=== PATIENT | female | born 1985 | race Caucasian/White ===

== ENCOUNTER 2017-09-13 11:19 | Emergency (ER) | payer OTHER ==
[2017-09-13 11:24] VITALS: BP 130/80
--- NOTE | 2017-09-13 11:41 | ER Document Report ---
ED General - General Chief Complaint: Headache Stated Complaint: HEADACHE Time Seen by Provider: 09/13/17 11:39 Mode of Arrival: Ambulatory Information source: Patient Notes: Patient states she woke up this morning has bilateral headache with some vision changes. She states she no longer has the vision changes. She states she still does have the headache. She states she also has some dizziness earlier that is now gone. Currently the headache is bilateral and moderate in intensity. It is a throbbing sensation. It does not radiate. Nothing makes it better or worse. She states she has been under stress lately. She states she has no significant past medical history or surgeries. No cough cold congestion or fevers. No known trauma. No history of migraines. TRAVEL OUTSIDE OF THE [place] IN LAST 30 DAYS: No - Related Data Allergies/Adverse Reactions: No Known Allergies Allergy (Verified 09/13/17 11:20) Past Medical History - General Information source: Patient - Social History Smoking Status: Never Smoker Chew tobacco use (# tins/day): No Frequency of alcohol use: Occasional Drug Abuse: None Family History: Reviewed & Not Pertinent Patient has suicidal ideation: No Patient has homicidal ideation: No - Past Medical History Cardiac Medical History: Denies: Hx Coronary Artery Disease, Hx Heart Attack, Hx Hypertension Pulmonary Medical History: Denies: Hx Asthma, Hx Bronchitis, Hx COPD, Hx Pneumonia Neurological Medical History: Denies: Hx Cerebrovascular Accident, Hx Seizures Renal/ Medical History: Denies: Hx Peritoneal Dialysis Musculoskeltal Medical History: Denies Hx Arthritis - Immunizations Hx Diphtheria, Pertussis, Tetanus Vaccination: Yes Review of Systems - Review of Systems Constitutional: denies: Chills, Fever EENT: Blurred vision. denies: Nose congestion, Nose discharge Cardiovascular: denies: Chest pain, Palpitations Physical Exam - Vital signs Vitals: Temp Pulse Resp BP Pulse Ox 98.6 F 73 15 130/80 H 100 09/13/17 11:23 09/13/17 11:23 09/13/17 11:23 09/13/17 11:23 09/13/17 11:23 Interpretation: Normal - General General appearance: Appears well, Alert - HEENT Head: Normocephalic, Atraumatic Eyes: Normal Pupils: PERRL - Respiratory Respiratory status: No respiratory distress Chest status: Nontender Breath sounds: Normal Chest palpation: Normal - Cardiovascular Rhythm: Regular Heart sounds: Normal auscultation Murmur: No - Abdominal Inspection: Normal Distension: No distension Bowel sounds: Normal Tenderness: Nontender Organomegaly: No organomegaly - Back Back: Normal, Nontender - Extremities General upper extremity: Normal inspection, Nontender, Normal color, Normal ROM , Normal temperature General lower extremity: Normal inspection, Nontender, Normal color, Normal ROM , Normal temperature, Normal weight bearing. No: Cheryl's sign - Neurological Neuro grossly intact: Yes Cognition: Normal Orientation: AAOx4 [place] Coma Scale Eye Opening: Spontaneous [place] Coma Scale Verbal: Oriented [place] Coma Scale Motor: Obeys Commands [place] Coma Scale Total: 15 Speech: Normal Cranial nerves: Normal Cerebellar coordination: Normal Motor strength normal: LUE, RUE, LLE, RLE Additional motor exam normals: Equal nuclear physician. No: Pronator drift Sensory: Normal - Psychological Associated symptoms: Normal affect, Normal mood - Skin Skin Temperature: Warm Skin Moisture: Dry Skin Color: Normal Course - Vital Signs Vital signs: Temp Pulse Resp BP Pulse Ox 98.6 F 73 15 130/80 H 100 09/13/17 11:23 09/13/17 11:23 09/13/17 11:23 09/13/17 11:23 09/13/17 11:23 Discharge - Discharge Clinical Impression: Tension headache Condition: Stable Disposition: HOME, SELF-CARE Prescriptions: Butalb/Acetaminophen/Caffeine [Fioricet (50-325-40 mg) Tablet] 1 tab PO Q4HP PRN #30 tab PRN Reason: Forms: Return to Work
== END 2017-09-13 11:45 | disposition home or self-care (01) ==
LOC: ER 11:19
DX: G44.209 Tension-type headache, unspecified, not intractable (principal); H53.8 Other visual disturbances
CPT/HCPCS: 99283

== ENCOUNTER 2018-10-08 08:29 | Emergency (ER) | payer MEDICAID, OTHER ==
[2018-10-08 08:36] VITALS: BP 115/66
[2018-10-08] MEDS ORDERED: LIDOCAINE 5% (700 MG) TRANSDERMAL ADH..PATCH TP ONE (09:20)
[2018-10-08] MEDS ORDERED: ACETAMINOPHEN 325 MG TABLET PO ONE (09:20)
--- NOTE | 2018-10-08 09:21 | ER Document Report ---
HPI - HPI Patient complains to provider of: Right hip and leg pain Time Seen by Provider: 10/08/18 09:10 Onset: Yesterday Onset/Duration: Gradual Quality of pain: Achy, Sharp Pain Level: 3 Context: Patient complains of right posterior hip and thigh pain that started yesterday. Patient does do heavy lifting at her job and is currently 16 weeks . Patient denies any fever or urinary symptoms. Patient denies any paresthesia. Associated Symptoms: Other - Right hip and leg pain Exacerbated by: Standing, Movement, Walking Relieved by: Denies Similar symptoms previously: No Recently seen / treated by doctor: No - ROS ROS below otherwise negative: Yes Systems Reviewed and Negative: Yes All other systems reviewed and negative - CONSTITUTIONAL Constitutional: DENIES: Fever, Chills - NEURO Neurology: DENIES: Weakness - REPRODUCTIVE Reproductive: DENIES: : - MUSCULOSKELETAL Musculoskeletal: REPORTS: Extremity pain. 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 Lives with: Family Family History: Reviewed & Not Pertinent - Medical History Medical History: Negative Pulmonary Medical History: Denies: Hx Asthma, Hx Bronchitis, Hx COPD, Hx Pneumonia Neurological Medical History: Denies: Hx Cerebrovascular Accident, Hx Seizures Renal/ Medical History: Denies: Hx Peritoneal Dialysis Musculoskeletal Medical History: Denies Hx Arthritis Surgical Hx: Negative - Immunizations Hx Diphtheria, Pertussis, Tetanus Vaccination: Yes Vertical Provider Document - CONSTITUTIONAL Agree With Documented VS: Yes Exam Limitations: No Limitations General Appearance: WD/WN, No Apparent Distress - INFECTION CONTROL TRAVEL OUTSIDE OF THE [place] IN LAST 30 DAYS: No - HEENT HEENT: Atraumatic, Normocephalic - NECK Neck: Normal Inspection, Supple - RESPIRATORY Respiratory: Breath Sounds Normal, No Respiratory Distress - CARDIOVASCULAR Cardiovascular: Regular Rate, Regular Rhythm - BACK Back: Normal Inspection. negative: CVA Tenderness-Right, CVA Tenderness-Left Notes: No spinal midline tenderness step-off or deformity - MUSCULOSKELETAL/EXTREMETIES Musculoskeletal/Extremeties: MAEW, FROM, Tender - Right SI joint tenderness, tenderness to posterior aspect of left thigh extending to the mid thigh area, No Edema. negative: Eccymosis - NEURO Level of Consciousness: Awake, Alert, Appropriate Motor/Sensory: No Motor Deficit - DERM Integumentary: Warm, Dry, No Rash Course - Vital Signs Vital signs: Temp Pulse Resp BP Pulse Ox 98.2 F 86 16 115/66 100 10/08/18 08:34 10/08/18 08:34 10/08/18 08:34 10/08/18 08:34 10/08/18 08:34 Discharge - Discharge Clinical Impression: Sciatica Qualifiers: Laterality: right Qualified Code(s): M54.31 - Sciatica, right side Condition: Stable Disposition: HOME, SELF-CARE Instructions: Acetaminophen, Sciatica ([facility]) Additional Instructions: Return immediately for any new or worsening symptoms Followup with your primary care provider, call tomorrow to make a followup appointment Avoid heavy lifting Prescriptions: Lidocaine [Lidoderm 5% (700 mg) Transdermal Patch] 1 patch TP DAILY PRN #10 adh..patch PRN Reason: Forms: Return to Work Referrals: SIMON MARAVILLA MD [ACTIVE STAFF] - Follow up tomorrow
== END 2018-10-08 09:28 | disposition home or self-care (01) ==
LOC: ER 08:29
DX: O26.92 Pregnancy related conditions, unspecified, second trimester (principal); M54.31 Sciatica, right side; Z3A.16 16 weeks gestation of pregnancy
CPT/HCPCS: 99283; J3490 ×2

== ENCOUNTER 2019-03-22 11:59 | Outpatient (CLI) | payer MEDICAID ==
--- NOTE | 2019-03-22 12:47 | Non Stress Test Report ---
Non Stress Test Datetime Report Generated by CPN: 03/22/2019 12:47 DEMOGRAPHIC EGA NST: 40.1 INDICATION Indication for Study: Ordered by Provider Indication for Study: Ordered by Provider Indication for Study (NST) Other: repeat from the office Indication for Study (NST) Other: POST DATES VITAL SIGNS Temperature - NST: 97.6 Temperature - NST: 97.6 RESP - NST: 18 MONITORING Monitor Explained: Monitor Explained; Test Explained; Patient Verbalized Understanding Monitor Explained: Monitor Explained; Test Explained; Patient Verbalized Understanding Time on Monitor: 03/22/2019 12:06 Time on Monitor: 03/22/2019 12:05 Time off Monitor: 03/22/2019 12:44 NST Duration: 38 NST INTERVENTIONS NST Interventions: PO Hydration; Reposition Patient NST Interventions: PO Hydration; Reposition Patient Physician Notified NST: C Titus CNM BABY A: [id number] BABY A Movement : Present Movement : Present Contraction Frequency : 0 FHR Baseline : 135 Accelerations : 15X15 Decelerations : None Variability : Moderate 6-25bpm NST Review: Meets Criteria for Reactive NST NST Review and Verified By : Pavithra Newton RN NST Results: Reactive NST REPORT Report Trigger: Send Report
== END 2019-03-22 12:52 | disposition home or self-care (01) ==
LOC: LC 11:59
PROVIDERS: ATTEND Obstetrics & Gynecology
PROC: 4A1HXCZ Monitoring of Products of Conception, Cardiac Rate, External Approach (ICD-10-PCS; principal; 2019-03-22)
DX: Z34.93 Encounter for supervision of normal pregnancy, unspecified, third trimester (principal)
CPT/HCPCS: 59025

== ENCOUNTER 2019-03-23 11:52 | Inpatient (IN) | payer MEDICAID ==
[2019-03-23 12:45] LABS: APPEARANCE,URINE CLEAR; BILIRUBIN,URINE NEGATIVE (NEGATIVE); COLOR,URINE YELLOW; GLUCOSE, URINE NEGATIVE (NEGATIVE); KETONES,URINE NEGATIVE (NEGATIVE); LEUKOCYTE ESTERASE,URINE SMALL (NEGATIVE); NITRITE,URINE NEGATIVE (NEGATIVE); PROTEIN,URINE NEGATIVE (NEGATIVE); URINE SPECIFIC GRAVITY 1.005; UROBILINOGEN,URINE NEGATIVE mg/dL (<2.0)
[2019-03-23 13:06] LABS: URINE AMPHETAMINES SCREEN NEGATIVE; URINE BARBITURATES SCREEN NEGATIVE; URINE BENZODIAZEPINES SCREEN NEGATIVE; URINE COCAINE SCREEN NEGATIVE; URINE MARIJUANA (THC) SCREEN NEGATIVE; URINE METHADONE SCREEN NEGATIVE; URINE PHENCYCLIDINE SCREEN NEGATIVE
[2019-03-23] MEDS ORDERED: RINGERS SOLUTION,LACTATED 1,000 ML IV ONE (15:20)
--- NOTE | 2019-03-23 15:25 | Admission Physical ---
Datetime Report Generated by CPN: 03/23/2019 15:24 CURRENT ADMISSION Chief Complaint: Uterine Contractions Admit Impression : Term, Intrauterine ; Active Labor Admit Plan: Admit to Unit; Initiate Labor Protocol ALLERGIES Medication Allergies: No Known Allergies (10/08/2018) OBSTETRICAL HISTORY EDC: 03/21/2019 00:00 PHYSICAL EXAM General: Normal HEENT: Normal Neurologic: Normal Thyroid: Normal Heart: Normal Lungs: Normal Breast: Normal Back: Normal Abdomen: Normal Genitourinary Exam: Normal Extremities: Normal DTRs: Normal Pelvic Type: Adequate VAGINAL EXAM Dilatation: 6 Effacement: 90 Station: -1 MEMBRANES Membranes: Intact FETUS A EGA: 40.2 Monitoring: External US Admit Comment: at 40.3 wks presents c/o contractions. After walking x 2 hours, cervical change was made to 6 cm. Pt is uncomfortable and plans an epidural. GBS negative. Attending MD this afternoon is Dr Vásquez. INFORMED CONSENT Assignment: Joanie Vásquez MD Signature: with User ID: [email or web address] : with User ID: [email or web address]
[2019-03-23] MEDS: RINGERS SOLUTION,LACTATED 1,000 ML IV PRN ×2 (15:38→16:27)
[2019-03-23 15:52] LABS: ABSOLUTE EOSINOPHILS # (AUTO) 0.1 10^3/uL (0.0-0.6); ABSOLUTE LYMPHOCYTES (AUTO) 1.5 10^3/uL (0.5-4.7); ABSOLUTE MONOCYTES (AUTO) 0.5 10^3/uL (0.1-1.4); ABSOLUTE NEUT (AUTO) 6.2 10^3/uL (1.7-8.2); BASOPHILS % (AUTO) 0.6 % (0-2); EOSINOPHILS % (AUTO) 1.5 % (0-6); HEMATOCRIT 38.5 % (36.0-47.0); LYMPHOCYTES % (AUTO) 18.1 % (13-45); MEAN CORPUSCULAR HEMOGLOBIN 29.5 pg (27.0-33.4); MEAN CORPUSCULAR HGB CONC 33.7 g/dL (32.0-36.0); MEAN CORPUSCULAR VOLUME 88 fl (80-97); MONOCYTES % (AUTO) 5.5 % (3-13); PLATELET COUNT 189 10^3/uL (150-450); RED CELL DISTRIBUTION WIDTH 14.5 % (11.5-14.0); SEGMENTED NEUTROPHILS % (AUTO) 74.3 % (42-78); TOTAL CELLS COUNTED % (AUTO) 100 %; WHITE BLOOD COUNT 8.4 10^3/uL (4.0-10.5)
[2019-03-23] MEDS ORDERED: LIDOCAINE 1% INJ-PF (10 MG/ML) 30 ML SDV ONE (16:13)
[2019-03-23] MEDS ORDERED: OXYTOCIN 10 UNIT/ML VIAL ONE (16:13)
[2019-03-23] MEDS ORDERED: MISOPROSTOL 0.2 MG TABLET ONE (16:13)
[2019-03-23] MEDS ORDERED: OXYTOCIN/NORMAL SALINE 20 UNIT/1,000 ML RTUINJ ONE (16:14)
[2019-03-23] MEDS ORDERED: PHENYLEPHRINE HCL INJ/PF 10 MG/1 ML SDV ONE (16:17)
[2019-03-23] MEDS ORDERED: FENTANYL CITRATE INJ/PF 100 MCG/2 ML AMPUL ONE ×2 (16:17→19:00)
[2019-03-23] MEDS ORDERED: BUPIVACAINE HCL 0.25 % INJ/PF (2.5 MG/1 ML) 30 ML VIAL ONE (16:18)
[2019-03-23] MEDS ORDERED: FENTANYL/BUPIVACAINE/NS/PF 0 MCG/0 ML RTUINJ EPI ONE (16:18)
[2019-03-23] MEDS ORDERED: EPHEDRINE SULFATE INJ 50 MG/1 ML AMPULE ONE (16:18)
[2019-03-23] MEDS ORDERED: DIPHENHYDRAMINE HCL 50 MG/ML VIAL ONE (18:42)
[2019-03-23] MEDS ORDERED: DIPH/PERTUSS(ACELL)/TETANUS VAC/PF 0.5 ML SYR (>=10YO) IM PRN (20:40)
[2019-03-23] MEDS ORDERED: ACETAMINOPHEN WITH CODEINE #3 TABLET PO PRN ×2 (20:40)
[2019-03-23] MEDS ORDERED: DIBUCAINE 1% OINTMENT 56 GM TP PRN (20:40)
[2019-03-23] MEDS ORDERED: BENZOCAINE/MENTHOL AEROSOL SPRAY 56 ML TOP PRN (20:40)
[2019-03-23] MEDS ORDERED: OXYTOCIN/NORMAL SALINE 20 UNIT/1,000 ML RTUINJ IV PRN (20:40)
[2019-03-23] MEDS ORDERED: ZOLPIDEM TARTRATE 5 MG TABLET PO PRN (20:40)
[2019-03-23] MEDS ORDERED: ACETAMINOPHEN WITH CODEINE #3 TABLET ONE (20:53)
[2019-03-23] MEDS ORDERED: IBUPROFEN 800 MG TABLET ONE (20:53)
[2019-03-23] MEDS: IBUPROFEN 800 MG TABLET PO SCH (21:00)
[2019-03-24] MEDS: IBUPROFEN 800 MG TABLET PO SCH ×3 (05:48→21:16)
[2019-03-24 06:37] LABS: HEMOGLOBIN 11.5 g/dL (12.0-15.5); MEAN CORPUSCULAR HEMOGLOBIN 29.5 pg (27.0-33.4); MEAN CORPUSCULAR HGB CONC 33.7 g/dL (32.0-36.0); MEAN CORPUSCULAR VOLUME 88 fl (80-97); PLATELET COUNT 192 10^3/uL (150-450); RED BLOOD COUNT 3.89 10^6/uL (3.72-5.28); RED CELL DISTRIBUTION WIDTH 14.7 % (11.5-14.0); WHITE BLOOD COUNT 14.3 10^3/uL (4.0-10.5)
--- NOTE | 2019-03-24 08:51 | PDOC PROGRESS REPORT ---
Subjective-OB Progress Note for:: 03/24/19 - PP Day #1, doing well, no complaints, A+, rubella Immune, bottlefeeding Physical Exam (OB) Vital Signs: Temp Pulse Resp BP Pulse Ox 98.8 F 86 105/60 99 03/23/19 22:54 03/23/19 22:54 03/23/19 22:54 03/23/19 22:54 Intake & Output 03/23/19 03/24/19 03/25/19 06:59 06:59 06:59 Intake Total 102 Balance 102 Weight 76.7 kg - General General Appearance: Appears well, Alert In distress: None - PIH/Pre-Eclampsia Clonus: Negative Headache: Absent Epigastric Pain: No Visual Changes: No - Lochia Lochia Amount: Scant < 10 ml Lochia Color: Rubra/Red - Abdomen Description: Soft, Round Hernia Present: No Fundal Description: Firm, Midline Fundal Height: u/u - u/2 - Respiratory Respiratory Status: No respiratory distress - Abdominal Inspection: Normal Distension: No distension - Genitourinary Genitourinary Note: voiding - Extremities Upper extremity: Normal inspection Lower extremities: Normal inspection - Neurological Cognition: Normal Orientation: AAOx4 - Psychological Associated symptoms: Normal affect, Normal mood - Skin Skin Temperature: Warm Skin Moisture: Dry Objective-Diagnostic Laboratory: 03/24/19 06:14 03/23/19 03/23/19 03/23/19 12:04 15:42 15:42 WBC 8.4 RBC 4.40 Hgb 13.0 Hct 38.5 MCV 88 MCH 29.5 MCHC 33.7 RDW 14.5 H Plt Count 189 Seg Neutrophils % 74.3 Urine Color YELLOW Urine Appearance CLEAR Urine pH 7.0 Ur Specific [place] 1.005 Urine Protein NEGATIVE Urine Glucose (UA) NEGATIVE Urine Ketones NEGATIVE Urine Blood MODERATE H Urine Nitrite NEGATIVE Ur Leukocyte Esterase SMALL H Blood Type A POSITIVE Antibody Screen NEGATIVE 03/24/19 06:14 WBC 14.3 H RBC 3.89 Hgb 11.5 L Hct 34.0 L MCV 88 MCH 29.5 MCHC 33.7 RDW 14.7 H Plt Count 192 Seg Neutrophils % Urine Color Urine Appearance Urine pH Ur Specific [place] Urine Protein Urine Glucose (UA) Urine Ketones Urine Blood Urine Nitrite Ur Leukocyte Esterase Blood Type Antibody Screen Assessment and Plan(PN) - Assessment and Plan (1) (normal spontaneous vaginal delivery) Is this a current diagnosis for this admission?: Yes (2) Active labor at term Is this a current diagnosis for this admission?: Yes - Time Spent with Patient Time with patient: Less than 15 minutes Medications reviewed and adjusted accordingly: Yes - Disposition Anticipated Discharge: Home Within: within 24 hours
[2019-03-24] MEDS: DOCUSATE SODIUM 100 MG CAPSULE PO SCH ×2 (10:31→17:19)
[2019-03-24] MEDS: PRENATAL VITAMIN W DHA CAPSULE PO SCH (10:31)
[2019-03-24] MEDS: FERROUS SULFATE 325 MG TABLET PO SCH ×2 (10:31→17:19)
[2019-03-24] MEDS: SENNOSIDES/DOCUSATE 8.6-50 MG 1 EACH TABLET PO SCH (10:31)
--- NOTE | 2019-03-24 12:37 | Delivery Summary ---
Del Sum A-C Datetime Report Generated by CPN: 03/24/2019 12:36 DELIVERY PERSONNEL DELIVERY PERSONNEL: [id number] Delivery Doctor:: Elly Llanos MD Labor and Delivery Nurse:: Carey Buenrostro RNoptician manager Nurse:: Mari Johnson RN Thin Film Technician/SENIOR COURT OFFICE ASSISTANT: Carlie Green, ST MATERNAL INFORMATION Delivery Anesthesia: None Delivery Anesthesia: None Medications After Delivery: Pitocin Bolus-Please Comment Meds After Delivery Comment: pitocin 20 units/1000 ml NS bolus Estimated Blood Loss (ml): 200 Delivery QBL: 200 Maternal Complications: None Provider Comments: of a viable female at 2028 w/ an OA presentation; APGARS 8, 9; no lacs LABOR SUMMARY EDC: 03/21/2019 00:00 No. Babies in Womb: 1 Attempted: No Labor Anesthesia: None LABOR INFORMATION Reason for Induction: Not Applicable Onset of Labor: 03/23/2019 17:01 Complete Dilatation: 03/23/2019 20:06 Oxytocin: N/A Group B Beta Strep: negative Steroids Given: None Reason Steroids Not Administered: Not Applicable MEMBRANES Membranes Rupture Method: Artificial Rupture of Membranes: 03/23/2019 17:01 Length of Rupture (hr): 3.45 Amniotic Fluid Color: Clear Amniotic Fluid Amount: Moderate Amniotic Fluid Odor: Normal STAGES OF LABOR Stage 1 hr: 3 Stage 1 min: 5 Stage 2 hr: 0 Stage 2 min: 22 Stage 3 hr: 0 Stage 3 min: 4 Total Time in Labor hr: 3 Total Time in Labor min: 31 VAGINAL DELIVERY Episiotomy: None Laceration #1: None Laceration Extension #1: N/A Laceration Repair: Not Applicable Sponge Count Correct: Yes Sharps Count Correct: Yes CSECTION DELIVERY Primary Indication: N/A Secondary Indication: N/A CSection Incidence: N/A Labor: N/A Elective: N/A CSection Incision: N/A BABY A INFORMATION Delivery Date/Time: 03/23/2019 20:28 Method of Delivery: Vaginal Born in Route : No : N/A Forceps: N/A Vacuum Extraction: N/A Shoulder Dystocia : No PRESENTATION/POSITION BABY A Presentation: Cephalic Cephalic Presentation: Vertex Vertex Position: OA Breech Presentation: N/A PLACENTA INFORMATION BABY A Placenta Delivery Time : 03/23/2019 20:32 Placenta Method of Delivery: Spontaneous Placenta Status: Delivered SCORES BABY A Heart Rate 1 min: >100 bpm Resp Effort 1 min: Good Cry Reflex Irritability 1 min: Cough or Sneeze or Pulls Away Muscle Tone 1 min: Active Motion Color 1 min: Blue/Pale SCORE 1 MIN: 8 Heart Rate 5 min: >100 bpm Resp Effort 5 min: Good Cry Reflex Irritability 5 min: Cough or Sneeze or Pulls Away Muscle Tone 5 min: Active Motion Color 5 min: Body [place], Extremities Blue SCORE 5 MIN: 9 INFANT INFORMATION BABY A Gestational Age at Delivery: 40.2 Gestational Status: Full Term- 39- 40.6 Weeks Infant Outcome : Liveborn Infant Condition : Stable Sex: Female IDENTIFICATION BABY A Infant Verification Date/Time: 03/23/2019 20:38 ID Band Number: [id number] Mother's Name Verified: Yes Infant RN Verifying : Yadi Johnson RN/ Hosea Buenrostro RN WEIGHT/LENGTH BABY A Infant Birthweight (gm): 3980 Weight (lb): 8 Infant Weight (oz): 12 Infant Length (in): 20.00 Length (cm): 50.80 CORD INFORMATION BABY A No. Cord Vessels: 3 Nuchal Cord : N/A Cord Blood Taken: Yes-For Storage (Mom's Blood type +) Suction: Mouth; Nose ASSESSMENT BABY A Complications: None Physical Findings at Delivery: Within Normal Limits Infant Respirations: Appears Normal Skin to Skin: Yes Skin to Skin Time (min): 30 Pie Bottomer/ALS Called : No Care By: Yadi Johnson RN Transferred To: Remains with Mother SIGNATURES Signature: with User ID: [email or web address]
[2019-03-24] MEDS ORDERED: DIPHENHYDRAMINE HCL 25 MG CAPSULE ONE (13:46)
[2019-03-24] MEDS ORDERED: DIPHENHYDRAMINE HCL 25 MG CAPSULE PO PRN (13:47)
[2019-03-25] MEDS: IBUPROFEN 800 MG TABLET PO SCH (05:41)
--- NOTE | 2019-03-25 09:58 | PDOC DISCHARGE SUMMARY ---
Final Diagnosis Discharge Date: 03/25/19 - PP Day #2, doing well, no complaints, bottlefeeding, A+ Rubella Immune, - Final Diagnosis (1) (normal spontaneous vaginal delivery) Is this a current diagnosis for this admission?: Yes (2) Active labor at term Is this a current diagnosis for this admission?: Yes Discharge Data - Discharge Medication Prescriptions: Ibuprofen [Motrin 800 mg Tablet] 800 mg PO Q8 #60 tablet Home Medications: [id number]/Iron Fum/Folic/Docusate [ 19 Tablet] 1 tab PO DAILY 03/22/19 Ibuprofen [Motrin 800 mg Tablet] 800 mg PO Q8 #60 tablet 03/25/19 Reason(s) for Admission: Onset of Labor Procedures: Ultrasound Intrapartum Procedure(s): Spontaneous Vaginal Delivery - Diagnosis Test Laboratory: Temp Pulse Resp BP Pulse Ox 97.9 F 83 18 103/73 100 03/24/19 21:11 03/24/19 21:11 03/24/19 21:11 03/24/19 21:11 03/24/19 21:11 03/23/19 03/23/19 03/24/19 12:04 15:42 06:14 RBC 4.40 3.89 Hgb 13.0 11.5 L Hct 38.5 34.0 L Urine Opiates Screen NEGATIVE - Discharge information/Instructions Discharge Activity: Activity As Tolerated, No Lifting Over 10 Pounds, Pelvic Rest Discharge Diet: As Tolerated, Regular Disposition: HOME, SELF-CARE Follow up with: [facility] in: 4, Weeks
[2019-03-25] MEDS: SENNOSIDES/DOCUSATE 8.6-50 MG 1 EACH TABLET PO SCH (11:21)
[2019-03-25] MEDS: DOCUSATE SODIUM 100 MG CAPSULE PO SCH (11:21)
[2019-03-25] MEDS: FERROUS SULFATE 325 MG TABLET PO SCH (11:21)
[2019-03-25] MEDS: PRENATAL VITAMIN W DHA CAPSULE PO SCH (11:21)
[2019-03-25 12:16] VITALS: BP 99/70
== END 2019-03-25 14:50 | disposition home or self-care (01) | DRG 807 ==
LOC: LC 11:52 → LR 15:19 → 2S 22:27
PROVIDERS: ADMIT Student in an Organized Health Care Education/Training Program; ATTEND Obstetrics & Gynecology
PROC: 10E0XZZ Delivery of Products of Conception, External Approach (ICD-10-PCS; principal; 2019-03-23)
DX: O80 Encounter for full-term uncomplicated delivery (principal); Z37.0 Single live birth; Z3A.40 40 weeks gestation of pregnancy
CPT/HCPCS: 36415; 80307; 81005; 85025; 85027; 86592; 86850; 86900; 86901; J1200; J2370; J2590; J3010; J3490